=== PATIENT | male | born 2000 | race African-American/Black ===

== ENCOUNTER 2025-01-06 20:58 | Emergency (ER) | payer BC, SELFPAY ==
[2025-01-06 21:18] VITALS: BP 130/76; PULSE 75; RESP 18; TEMP 36.8; O2SAT 97
--- NOTE | 2025-01-06 21:23 | ED_ITS ---
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 Patient notes that of this pain started about 4 days ago and earlier today he ev en felt pain into the back of his scrotum and testicles. He notes he suddenly felt a pop and since that time he has had bleeding from his rectum. He shows me pictures of clot that he found in the toilet and on his underwear. Earlier today he also had some pain deep in his lower abdomen but that has dissipated. He has not had fevers or chills. He has not had any constipation. He does note that he has been doing some exercises related to yoga that required him to squeeze his rectum quite a bit and he is wondering if this exacerbated his issues. He has not had hemorrhoids in the past. No unusual weight loss or chills at night. Related Data Home Medications ?Medication ?Instructions ?Recorded ?Confirmed No Known Home Medications 01/06/25 01/06/25 Allergies Allergy/AdvReac Type Severity Reaction Status Date / Time No Known Drug Allergies Allergy Verified 01/06/25 21:14 Review of Systems Status of ROS: Reports: 10 or more systems reviewed and unremarkable except as noted in History and below Narrative: No bleeding from the penis, dysuria, hematuria. [facility] Medical History (Updated 01/06/25 @ 21:52 by Marlo Rosario RN) No significant past medical history Surgical History (Updated 01/06/25 @ 21:52 by Marlo Rosario RN) No significant past surgical history Exam Narrative: Exam Narrative: Alert and oriented. Very well-spoken young man in no acute distress. EOM is full. Lips are dry. Oral cavity with moist mucous membranes. Mentation and speech normal. Heart with regular rate and rhythm and lungs are clear bilaterally. Abdomen is soft nontender. Examination of the genital so showed no testicular tenderness. Palpation in the perineum with out fluctuance or pain. No evidence of hernias or bulging masses in the groin. Examination shows a synthetic department supervisor colored hemorrhoid with central blood. A moderate amount of clot was further removed from this area and now sero bloody fluid is draining. There does not appear to be any swelling in the perirectal area. Other nonthrombosed hemorrhoid noted at approximately 0500 hours position. Const: Vital Signs, click to edit/add: Vital Signs - 24 hr 01/06/25 21:18 Temperature 98.2 F Pulse Rate [Pulse Oximeter] 75 Respiratory Rate 18 Blood Pressure [Ri ght Upper Arm] 130/76 Pulse Oximetry 97 Oxygen Delivery Me thod Room Air Documenting provider has reviewed patient's vital signs: yes Course Course ED Course: Patient noted to have hemorrhoid that had already spontaneously drained a large amount of clot. Further clot was removed until we had sero bloody fluid that was draining. Patient notes improvement of his symptoms. Reassurance at this time that patient has no residual discomfort of the testicles perineum or evidence of a perirectal fistula or abscess. Vital Signs Vital signs: Initial Vital Signs Temperature 98.2 F 01/06/25 21:18 Temperature Source Temporal Artery Scan 01/06/25 21:18 Pulse Rate 75 01/06/25 21:18 Respiratory Rate 18 01/06/25 21:18 Blood Pressure 130/76 01/06/25 21:18 Blood Pressure Mean 94 01/06/25 21:18 Blood Pressure Position Sitting 01/06/25 21:18 Pulse Oximetry 97 01/06/25 21:18 Oxygen Delivery Method Room Air 01/06/25 21:18 Vital Signs Temperature 98.2 F 01/06/25 21:18 Pulse Rate 75 01/06/25 21:18 Respiratory Rate 18 01/06/25 21:18 Blood Pressure 130/76 01/06/25 21:18 Pulse Oximetry 97 01/06/25 21:18 Oxygen Delivery Method Room Air 01/06/25 21:18 Temperature 98.2 F 01/06/25 21:18 Pulse Rate 75 01/06/25 21:18 Respiratory Rate 18 01/06/25 21:18 Blood Pressure 130/76 01/06/25 21:18 Pulse Oximetry 97 01/06/25 21:18 Oxygen Delivery Method Room Air 01/06/25 21:18 Medical Decision Making MDM Narrative Medical decision making narrative: 1. Hemorrhoid-hemorrhoid had already burst and had a large amount of clot drained. I further removed some clots and patient notes that although he was feeling better after the initial event in his college he is now feeling better. He was worried as some of the pain was peroneal but this has completely resolved as has abdominal pain. Will have him follow up with the surgeon for a recheck to see if further drainage needs to be done. He is challenged as his insurance runs out on January 08.. He has sent his paperwork in for new coverage but he has not heard about it yet. Will try to make an appointment tomorrow or Monday with 1 of our surgeons for recheck. 2. Disposition-home at this time. When using a pad in his underwear for blood. Talked about Sitz baths or bathing twice a day. Ibuprofen as needed Tylenol as needed for pain. Return for increasing discomfort, vomiting, abdominal pain and as needed. Discharge Plan Discharge Clinical Impression: Hemorrhoid Patient Disposition: Home, Self-Care Condition: Improved Instructions: Sitz Bath (DC) Additional Instructions: Suggest follow-up with surgery in for recheck. Return to the ER for fever, worsening symptoms and as needed. Ibuprofen or Tylenol as needed for pain Prescriptions: No Action No Known Home Medications Stand Alone Forms: Smart Device Media Info Instructions
[2025-01-06 21:53] VITALS: BP 125/71; PULSE 72; RESP 18; TEMP 36.8; O2SAT 97
[2025-01-06 21:54] VITALS: BP 125/71; PULSE 72; RESP 18; TEMP 36.8
--- OUTSIDE RECORDS SUMMARY | 2025-01-06 21:55 | XMS_ITS | Continuity of Care Document ---
Author Organization Done. Address [facility] [place] [address] Phone Care Team Providers Care Welcome Desk Agent Name Role Phone Deysi Anderson NP Unavailable Unavailable Allergies, Adverse Reactions, Alerts Substance Reaction Status Criticality No Known Allergies Active No Inform ation Procedures Procedure Date Telehealth Est Pt 20-29 Min SYST BP LT 130 MM HG Systolic: BP < 140 DIAST BP < 80 MM HG Diastolic: BP <90 WEIGHT RECORDED BODY MASS INDEX DOCD TELEHEALTH EST E&M 25 MIN TELEHEALTH EST E&M 15 MIN TELEHEALTH EST E&M 15 MIN PURE TONE HEARING TEST, AIR REFLEX URINALYSIS Init Preven Meds E&m New Pt; 1 20 Advance Directives Directive Yes / No Effective Date File Name No Information Encounters Encounter Description Practice Location Reason(s) For Visit Diagnoses Date Provider Providers Copied on Encounter Done., [facility] [place], [place], [id number], tel:[phone] [facility] Medical No Information 3 Justin Jo. [address] [facility], [place], [address], [place]. tel:[phone] [facility] [facility], [address] [place] [address], [id number], [place] tel:[phone] [facility] Medical Visit Conducted via Telehealth (chief complaint)n eeds referral (chief complaint) Complete tear of anterior cruciate ligament of left knee, subsequent encounter 2 Justin Jonesnohemi. [address] [facility], [place], [address], [place]. tel:[phone] [facility], [address] [place] [address], [id number], [place] tel:[phone] [facility] Visit Conducted via Telehealth (chief complaint)C learance for return to play (chief complaint) Head injury consultation [address], [place], [place], [facility], . tel:[phone], [address] [place] [address], [id number], [place] tel:[phone] [facility] Elevated creatinine level (chief complaint)V isit Conducted via Telehealth (chief complaint) Elevated serum creatinine [address], [place], [address], . tel:[phone], [address] [place] [address], [id number], [place] tel:[phone] [facility] Visit Conducted via Telehealth (chief complaint)E levated creatinine (chief complaint)P ainful urination (chief complaint) Elevated serum creatininePain ful ejaculation [address], [place], [place], [facility], . tel:[phone], [address] [place] [address], [id number], [place] tel:[phone] [facility] Elevated serum creatinine [address], [place], [address], [place]. tel:[phone] Init [facility] E&m New Pt; 1 [facility], [address] [place] [address], [id number], [place] tel:[phone] [facility] Well child check (chief complaint)D ysuria (chief complaint) Encounter for routine child health examination without abnormal findingsDysuri aNo immunization history record 0 [address], [place], [address], [place]. tel:[phone] Family History Family Member Type Diagnosis Age At Onset No Information Payers Payer name Insurance type Covered constitution party ID Authorlola harris(s) Goran [address] [facility] [id number] Social History Type Description Quantity Date Captured Comments Sex Male Smoking Status No Information Sexual Orientation Straight or heterosexual Gender Identity Male Chief Complaint And Reason For Visit No Information Reason For Referral Reason For Referral No Information Plan Of Treatment Date Type Action Status Referral Ordered: Referrals: Orthopedic Surgery. Evaluate and treat Appointment date/timeframe: Urgent ordered Referral Ordered: Referrals: Urology - Pediatric. Evaluate and treat Appointment date/timeframe: Routine ordered History Of Present Illness Encounter Date Complaint History Of Prese nt Illness needs referral Pt reports teari ng his ACL of L knee on 07/18/2022. Non-contact injury from playing football. While he was trying to block, he stepped wrong.Has been treating it with [employer] PT with athletic trainers. ROM. Compression therapy.Pt is currently in [place] for college and will be returning back to [place] on 08/31/22. Requests the surgery done before 09/15/21 because that's when he needs to return back to [place] for school. Visit Conducted via Telehealth I have confirmed that this patient gives verbal consent to the use of Televisit for their visit today including recognizing the risks and benefits of Televisits.This visit will be conducted via: audio I reviewed with patient that they have the right to withdraw at any time and all confidentiality protections apply to this visit.Reason for TeleVisit: given the recommendations of our [facility] and the CDC guidelines, patients are directed to remain at home. This Video/Telephone encounter is intended to take the place of a tjhb-ry-xlvq visit. This is deemed medically necessary and physical presence of the patient is not required for treatment and evaluation. Visit Conducted via Telehealth Anabel soliz's furnace hand gives verbal consent to the use of Televisit for their visit today including recognizing the risks and benefits of Televisits.This visit will be conducted via: audio I reviewed with patient that they have the right to withdraw at any time and all confidentiality protections apply to this visit.Reason for TeleVisit: given the recommendations of our [facility] and the CDC guidelines, patients are directed to remain at home. This Virtual/Telephone encounter is intended to take the place of a vlzb-jx-tbdr visit. This is deemed medically necessary and physical presence of the patient is not required for treatment and evaluation Clearance for return to play [place] ointment for return to play sports.Eloy reports a mild self limited headache that lasted approximately 20 minutes shortly after a helmet to helmet collision with another player during football. He denies associated numbness or tingling of arms at the time. He had no loss of consciousness, neck pain or vomiting. He has otherwise been symptom free since the impact approximately 2 weeks ago. His reading coach initiated the return to play protocol and has been able to complete 4/6 stages without any symptoms. He will need clearance for the next stage which involves full contact practice. Denies any current symptoms.Of note, he was seen in ED 1 day ago for clearance however referred to PCP. In ED, physical exam was normal and was found to be asymptomatic with no neurological deficits. Visit Conducted via Telehealth Anabel soliz's furnace hand gives verbal consent to the use of Televisit for their visit today including recognizing the risks and benefits of Televisits.This visit will be conducted via: audio I reviewed with patient that they have the right to withdraw at any time and all confidentiality protections apply to this visit.Reason for TeleVisit: given the recommendations of our [facility] and the CDC guidelines, patients are directed to remain at home. This Virtual/Telephone encounter is intended to take the place of a vrpz-go-cbrq visit. This is deemed medically necessary and physical presence of the patient is not required for treatment and evaluation Elevated creatinine level Discus sed lab results. Also gave mother referral information for urology appointment due to history of painful ejaculation Elevated creatinine Mother state s that Eloy takes muscle protein shakes. Visit Conducted via Telehealth P atlala's furnace hand gives verbal consent to the use of Televisit for their visit today including recognizing the risks and benefits of Televisits.This visit will be conducted via: audio I reviewed with patient that they have the right to withdraw at any time and all confidentiality protections apply to this visit.Reason for TeleVisit: given the recommendations of our state and local government and the CDC guidelines, patients are directed to remain at home. This Virtual/Telephone encounter is intended to take the place of a fkmg-mk-zwgh visit. This is deemed medically necessary and physical presence of the patient is not required for treatment and evaluation Painful urination (comments) Dys uria It occurs daily. Associated symptoms include dysuria, hematuria and painful ejaculation. Pertinent negatives include back pain, flank pain, pelvic pain, penile discharge and suprapubic pain. Additional information: Onset several years ago. Occurs with every episode of urination and with ejaculation. Not sexually active. Painful urination Dysuria It occurs daily. Associated symptoms include dysuria, hematuria and painful ejaculation. Pertinent negatives include back pain, flank pain, pelvic pain, penile discharge and suprapubic pain. Additional information: Onset several years ago. Occurs with every episode of urination and with ejaculation. Not sexually active. Well child check Concerns: Dysur ia for several yearsRecently moved from [place]. No significant pmhFuture Plans: Aerospace engineerExercise: SportsDiet: Healthy choicesSchool: No concerns Functional Status Date Functional Assessmen t No Information Instructions Date Instruction Additional Infor madison -I have submitted an urgent referral for you today as discussed to: orthopedic surgeryYour referral will processed by our referral department for authorization with your insurance. - Urgent referrals are processed in 3-5 days. If at 1 week time you do not hear a response with an authorization, please call us at ([phone], option #3) and ask to speak with the referral department. Related to Complete tear of anterior cruciate ligament of left knee, subsequent encounter Plan to refer to uro logy pending results of urinalysis given persistent nature of symptoms. Related to Dysuria Follow up in 1 year for well child checkLimits screen time to 2 hours or lessPhysical activity at least 1 hour a dayAdequate sleepDrugs/Alcohol/STD/Sex educationDiscuss mental health Related to Encounter for routine child health examination without abnormal findings Age appropriate anti cipatory guidance discussed (15-21 years) Related to Encounter for routine child health examination without abnormal findings Age appropriate diet discussed (15-21 years) Related to Encounter for routine child health examination without abnormal findings Age appropriate safe ty discussed (15-21 years) Related to Encounter for routine child health examination without abnormal findings Oral Health Discussed ( yea rs) Related to Encounter for routine child health examination without abnormal findings Assessments Type Assessment Date No Information Patient Care Teams Name Effective Dates (start - stop) Status Members No Information
--- OUTSIDE RECORDS SUMMARY | 2025-01-06 21:55 | XMS_ITS | Clinical Summary ---
Author Organization [facility] Address [address] [place] [address] Care Team Providers Care Class B Truck Driver Name Role Phone Inactive, Carloz Primary Care Provider [phone] Source Comments PLEASE NOTE, if this patient is a minor, it may be UNLAWFUL to discuss sensitive information that is contained in these records (such as FAMILY PLANNING, MENTAL HEALTH or SUBSTANCE ABUSE) with the minor patient's parent or other person without the patient's specific authorization.[facility] Social History Tobacco Use Types Packs/Day Years Used Date Smoking Tobacco: Never Assessed Social Connections Answer Date Recorded Connectedness 0 06/02/2024 Financial Resource Strain Answer Date R ecorded Financial Resource Strain 0 2021 Stress Answer Date Recorded Stress 0 2021 Physical Activity Answer Date Recorded Physical Activity 0 2021 Food Insecurity Answer Date Recorded Food 0 06/06/2024 Transportation Needs Answer Date Record ed Transportation 0 2021 Housing Stability Answer Date Recorded Housing 0 2021 Safety and Environment Answer Date Manpreet rded Safety 0 2021 Utilities Answer Date Recorded Utilities 0 2021 Employment Answer Date Recorded Stress 0 06/02/2024 Sex and Gender Information Value Date Recorded Sex Assigned at Male 11/22/2024 5:43 PM PDT Legal Sex Male 4:54 AM PST Gender Identity Not on file Sexual Orientation Not on file Plan of Treatment Health Maintenance Due Date Last Done Comments Anxiety Screening 2002 Hepatitis C Screening 2002 Tobacco Screening 2002 Imm-Varicella (1 of 2 - 13+ 2-dose series) 12/31/2015 HIV Screening 2017 Imm-HPV (1 - Male 3-dose series) 2017 Hypertension Screening (#1) 2020 Syphilis Screening 12/31/2020 Imm-DTaP/Tdap/Td (1 - Tdap) 2021 Imm-Hepatitis B (1 of 3 - 19+ 3-dose series) [id number] ( - 2023- season) 2024 Imm-Influenza (#1) 2024 Alcohol and Drug Screen 09/11/2024 Depression Annual Screen 09/11/2024 08/26/2022 Care Teams Class B Truck Driver Relationship Specialty Start Date End Date Inactive, Vg [address] [place] [address] PCP - General NonBilling 12/30/21
--- OUTSIDE RECORDS SUMMARY | 2025-01-06 21:55 | XMS_ITS | Clinical Summary ---
Author Organization [facility] Address [address] [place] [address]. 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 24 Social History Tobacco Use Types Packs/Day Years Used Date Smoking Tobacco: Never Assessed Adolescent Education Answer Date Record ed Getting School Help Needed Not on file 11/11 Sex and Gender Information Value Date Recorded Sex Assigned at Not on file Legal Sex Male 1:24 PM AGRICULTURE INTERN Gender Identity Not on file Sexual Orientation Not on file Last Filed Vital Signs Vital Sign Reading Time Taken Comments Blood Pressure 163/99 11/12/2023 1:39 PM AGRICULTURE INTERN Pulse 104 11/12/2023 1:39 PM AGRICULTURE INTERN Temperature 36.7 C (98.1 F) 11/12/2023 1:39 PM AGRICULTURE INTERN Respiratory Rate 16 11/12/2023 1:39 PM AGRICULTURE INTERN Oxygen Saturation 98% 11/12/2023 1:39 PM AGRICULTURE INTERN Inhaled Oxygen Concentration - - Weight - - Height - - Body Mass Index - - Plan of Treatment Health Maintenance Due Date Last Done Comments ADVANCE CARE PLANNING 2002 ANNUAL REVIEW OF HM ORDERS 2002 HIV SCREENING 2017 HPV IMMUNIZATION (1 - Male 3 -dose series) 2017 DTAP/TDAP/TD IMMUNIZATION (2 - Td or Tdap) 05/17/2018 04/19/2018 MENINGITIS B IMMUNIZATION (1 of 2 - Standard) 2018 YEARLY PREVENTIVE VISIT 04/12/2019 04/12/2018 HEPATITIS C SCREENING 2020 HEPATITIS B IMMUNIZATION (1 of 3 - 19+ 3-dose series) 2021 COVID-19 Vaccine (1 - 2023-2 5 season) 2024 INFLUENZA VACCINE (#1) 2024 PHQ-2 (once per calendar year) 2024 ZOSTER IMMUNIZATION (1 of 2) 2052 MENINGITIS IMMUNIZATION Aged Out No l onger eligible based on patient's age to complete this topic Pneumococcal Vaccine: Pediat rics (0 to 5 Years) and At-Risk Patients (6 to 49 Years) Aged Out No longer eligi ble based on patient's age to complete this topic Insurance [facility] OF [facility] OUT [facility] Care Teams Mutuel Teller Relationship Specialty Start Date End Date No Ref-Primary, Physician PCP - General 11/12/23
--- OUTSIDE RECORDS SUMMARY | 2025-01-06 21:55 | XMS_ITS | Clinical Summary ---
Author Organization [facility] Address [address] [place] [address] Care Team Providers Care Lawn Care Professional Name Role Phone Pcp, No Primary Care Provider Unavailabl e Medications No known medications Active Problems No known active problems Social History Tobacco Use Types Packs/Day Years Used Date Smoking Tobacco: Never Assessed Sex and Gender Information Value Date Recorded Sex Assigned at Not on file Legal Sex Male 10:44 AM CDT Gender Identity Not on file Sexual Orientation Not on file Obstetrics History Plan of Treatment Health Maintenance Due Date Last Done Comments Tdap 2013 Depression screening for age 12+ 2014 HIV for age 15-65 2017 HPV series for age 9-26 (1 - Male 3-dose series) 2017 BMI (ht and wt on same day) for age 18+ 2020 Hepatitis C screening for ag e 18-79 2020 Tetanus booster 2022 COVID-19 vaccine series ( season) 2024 Influenza Vaccine (Season Ended) 2025 Pneumococcal series for age 6-49 Aged Out No longer eligible based on patient's age to complete this topic Insurance [employer] Care Teams Lawn Care Professional Relationship Specialty Start Date End Date Pcp, No . PCP - General 05/19/21
== END 2025-01-06 21:54 | disposition home or self-care (01) ==
LOC: ED 21:52
PROVIDERS: Emergency Provider Family Medicine
DX: K64.9 Unspecified hemorrhoids (principal)
CPT/HCPCS: 99282; 99283